=== PATIENT | male | born 1980 | race Caucasian/White ===

== ENCOUNTER 2019-11-23 01:35 | Emergency (ER) | payer OTHER, SELFPAY ==
[2019-11-23 01:40] VITALS: BP 142/80; PULSE 99; RESP 18; TEMP 38.1; O2SAT 99
[2019-11-23 01:46] VITALS: BP 142/80; PULSE 99; RESP 20; O2SAT 99
--- NOTE | 2019-11-23 01:46 | ED.URI ---
HPI - URI/Sore Throat General Chief Complaint: Upper Respiratory Infection Stated Complaint: right sided face pain Time Seen by Provider: 11/23/19 01:50 Source: patient and RN notes reviewed Mode of arrival: ambulatory Limitations: no limitations History of Present Illness HPI Narrative: A 39 y/o male presents to the ED with multiple URI symptoms for the past 2 weeks. He reports that he has had nasal congestion, a white productive cough, rhinorrhea, and a LYLE for the past 2 weeks. He states that he thought he was getting better but that he developed rt facial pain today, so he decided to come to the ED. He notes that he has had some mild SOB which has resolved. He also notes that his son was dx with RSV a couple weeks ago. He denies any fevers, chills, N/V/D, ABD pain, or CP. MD elicited complaint: other (Multiple) Onset (ago): week(s) (2) Description of mucous: other (white) Associated symptoms: headache, rhinorrhea, nasal congestion, cough (a white productive), shortness of breath (resolved) and other (rt facial pain) Related Data Allergies Allergy/AdvReac Type Severity Reaction Status Date / Time No Known Allergies Allergy Verified 11/23/19 01:48 Review of Systems Review of Systems: All systems reviewed & are unremarkable except as noted in HPI and below Constitutional: Constitutional: Denies chills and Denies fever(s) ENT: Reports facial pain (rt), Reports nasal congestion and Reports nasal discharge Cardiovascular: Cardiovascular: Denies chest pain Respiratory: Respiratory: Reports cough (white productive) and Reports dyspnea (resolved) Gastrointestinal: Gastrointestinal: Denies abdominal pain, Denies diarrhea, Denies nausea and Denies vomiting Neurologic: Reports headache(s) PMFSH Past Medical History Medical History Degenerative disc disease Surgical History Surgical History History of endoscopy History of knee surgery Social History Social History (Updated 11/23/19 @ 01:58 by Rajesh Meehan) Smoking status: Smoker, status unknown Tobacco type: e-cigarettes Gender identity (if verbalized by the patient): Male Exam Const: General: cooperative, no acute distress and alert Nutritional Appearance: well nourished Orientation/consciousness: patient oriented x3 Limitations: no limitations HENMT: Ears: TM normal on the right and TM abnormal erythematous on the right Face and sinus: edema and Facial tenderness on exam of face and sinuses on the right maxilla Mouth: Yes lip normal and Yes moist mucous membranes Resp: Effort & Inspection: normal respiratory effort Auscultation: clear to auscultation bilaterally Cardio: Rate: regular rate Rhythm: regular rhythm Skin: General skin exam: normal color Neuro: General: patient oriented x3 Cognition (Neuro): normal cognition Speech: normal speech Extrem: General: normal to inspection, full ROM and no clubbing, cyanosis or edema Psych: Mental Status: mental status grossly normal Affect: normal affect Attitude: cooperative Course Vital Signs Vital signs: Vital Signs Temperature 100.5 F H 11/23/19 01:40 Pulse Rate 99 11/23/19 01:40 Respiratory Rate 18 11/23/19 01:40 Blood Pressure 142/80 H 11/23/19 01:40 Pulse Oximetry 99 11/23/19 01:40 Temperature 100.5 F H 11/23/19 01:40 Pulse Rate 99 11/23/19 01:46 Respiratory Rate 20 11/23/19 01:46 Blood Pressure 142/80 H 11/23/19 01:46 Pulse Oximetry 99 11/23/19 01:46 MDM - URI/Sore Throat MDM Narrative Medical decision making narrative: Patient with 2-week history of viral upper respiratory infection now with fever, isolated facial pain, sinus tenderness, and worsening congestion consistent with secondary development of bacterial sinus infection. Will prescribe antibiotics. Counseled on symptomatic management. Lab Data Labs: Influenza A Screen Negative Referenc
[2019-11-23] MEDS: ACETAMINOPHEN 500 MG TABLET 1000 MG PO (02:33)
[2019-11-23] MEDS: IBUPROFEN 600 MG TABLET PO (02:34)
[2019-11-23] MEDS: AMOXICILLIN/CLAVULANATE K 875-125 MG TAB 1 TABLET PO (02:34)
[2019-11-23 02:36] VITALS: BP 138/82; PULSE 90; RESP 20; O2SAT 100
== END 2019-11-23 02:38 | disposition home or self-care (01) ==
LOC: ANHED 02:27
PROVIDERS: Emergency Provider Emergency Medicine; PCP Emergency Medicine
DX: J01.00 Acute maxillary sinusitis, unspecified (principal); F17.290 Nicotine dependence, other tobacco product, uncomplicated
CPT/HCPCS: 87804; 99283; A9270

== ENCOUNTER 2022-01-18 16:33 | Emergency (ER) | payer OTHER, SELFPAY ==
[2022-01-18 16:48] VITALS: BP 121/81; PULSE 81; RESP 16; TEMP 37.1; O2SAT 98
== END 2022-01-18 17:22 | disposition left against medical advice (07) ==
PROVIDERS: Emergency Provider Nurse Practitioner Family; PCP Physician Assistant
DX: Z53.21 Procedure and treatment not carried out due to patient leaving prior to being seen by health care provider (principal)
CPT/HCPCS: 99199

== ENCOUNTER 2022-08-08 18:16 | Emergency (ER) | payer OTHER, SELFPAY ==
[2022-08-08] VITALS (27 sets, daily range): BP systolic 125–136; BP diastolic 85–100; PULSE 82–102; RESP 12–24; TEMP 37.2; O2SAT 97–100
--- NOTE | ~2022-08-08 | XR_ITS ---
EXAMINATION: XR chest 1V portable Exam Date/Time: 08/08/2022 19:10 NAILER MACHINE HISTORY: ams Comparison: None available. RESULT: Lines, tubes, and devices: None. Lungs and pleura: Clear. Cardiomediastinal silhouette: Normal. Other: No acute osseous or upper abdominal finding. IMPRESSION: No acute cardiopulmonary process. Reviewed, dictated and finalized at location K. ER MACHINE
--- NOTE | ~2022-08-08 | CT_ITS ---
EXAMINATION: CT brain wo con DATE: 08/08/2022 19:23 INDICATION: dizziness . TECHNIQUE: Computed tomography (CT) of the head was performed without intravenous contrast. The mA wa s adjusted according to patient size. Iterative reconstruction technique was employed. The dose-lengt h product was 681.00 mGy-cm. COMPARISON: None FINDINGS: No acute intracranial hemorrhage or extra-axial fluid collection. No hydrocephalus, mass, or herniation. No acute ischemic infarct. Unremarkable dural venous sinus attenuation. No acute osseous abnormality. The aerated spaces are clear. IMPRESSION: No acute intracranial process. Reviewed, dictated and finalized at location K. HOUSE ENGINEER
--- NOTE | ~2022-08-08 | CT_ITS ---
EXAMINATION: CT abdomen pelvis w con DATE: 08/08/2022 20:35 INDICATION: abd pain TECHNIQUE: Computed tomography (CT) of the abdomen and pelvis was performed with 100 mL Omnipaque-350 intravenous contrast. Automated exposure control and iterative reconstruction technique were employe d. The dose-length product was 387.75 mGy-cm. COMPARISON: None. FINDINGS: Lower thorax: Unremarkable Liver: Normal. Biliary/Gallbladder: Gallbladder is normal. No bile duct dilation. Pancreas: No mass or duct dilation. Spleen: Normal. Adrenals:No mass. Kidneys: No suspicious mass, stone, or hydronephrosis. Punctate bilateral renal hyperdensities may re present nonobstructing calculi at the limit of detection. Subcentimeter left lower pole hypodensity, too small to characterize. GI tract: Distal esophageal and gastric wall edema. No small or large bowel dilation. Normal appendix . Mesentery/Peritoneum: No ascites, mass, or free air. Retroperitoneum: No mass. Minimal atherosclerotic abdominal aortic and/or arterial calcifications. Pelvis: Pelvic organs are within normal limits. Soft Tissues: Soft tissues and body wall unremarkable. Bones: No acute osseous finding. IMPRESSION: Esophagitis/gastritis. Otherwise no acute abdominopelvic process detected. Reviewed, dictated and finalized at location K. PROGRAMMER
--- NOTE | 2022-08-08 19:10 | ECG_ITS ---
Measurements Intervals [place] Rate: 86 P: 51 PA: 174 QRS: 52 QRSD: 110 T: 49 QT: 327 QTc: 393 Interpretive Statements SINUS RHYTHM INCOMPLETE RIGHT BUNDLE BRANCH BLOCK ST ELEVATION IN DIFFUSE LEADS- PROBABLY EARLY REPOLARIZATION BASELINE ARTIFACT- I, III, AVL BORDERLINE ECG NO PREVIOUS ECG AVAILABLE FOR COMPARISON Electronically Signed On 08-09-2022 8:27:29 [employer]LEVISION [employer]S [employer] by Roman Florian D.O.
--- NOTE | 2022-08-08 19:12 | ED.GENADULT ---
HPI - General Adult General Chief complaint: Unspecified Stated complaint: lethargic, disoriented Time Seen by Provider: 08/08/22 19:06 Source: RN notes reviewed History of Present Illness HPI narrative: Patient presents emergency department from home for multiple complaints. Patient states she has been feeling very fatigued and tired for the past 6 days. He states that he feels out of it he denies having any definitive episodes of confusion he denies any numbness or tingling in extremities he states he also been having associated abdominal pain diffusely throughout the abdomen there is been ongoing for the past month but is worsened this evening the pain is located around the mid abdomen and radiates around throughout the abdomen he denies any fevers or chills nausea vomiting diarrhea or any other symptoms Related Data Home Medications Medication Instructions Recorded Confirmed terbinafine HCl 250 mg tablet 250 mg PO DAILY 01/18/22 01/18/22 Allergies Allergy/AdvReac Type Severity Reaction Status Date / Time No Known Allergies Allergy Verified 11/23/19 01:48 Review of Systems Review of Systems: Gen.: Denies fevers or chills Eyes: Denies eye pain or visual change ENT: Denies congestion Respiratory: Denies shortness of breath or cough CV: Denies chest pain or palpitations GI: See HPI denies burning, urgency, frequency or hematuria Musculoskeletal: Denies back pain or muscle pain Neuro: Reports fatigue Skin: Denies rash Except as documented, all other systems reviewed and negative [facility] Past Medical History Medical History (Updated 08/08/22 @ 21:36 by Wing Mai DO) Degenerative disc disease Surgical History Surgical History History of endoscopy History of knee surgery Social History Social History (Updated 08/08/22 @ 19:13 by Wing Mai DO) Smoking status: Current every day smoker Tobacco type: e-cigarettes/vaping Gender identity (if verbalized by the patient): Male Exam Narrative: APPEARANCE: No acute distress, nontoxic, resting in bed HEENT: Normocephalic, atraumatic, OMM, no erythema or exudate posterior pharynx EYES: PERRL, EOMI NECK: Supple, nontender, full range of motion without pain, no meningismus RESPIRATORY: No respiratory distress, clear to auscultation bilaterally with no rhonchi wheezing or rales CARDIOVASCULAR: RRR s murmur ABDOMINAL: Soft, nondistended diffusely tender to palpation no rebound or guarding MUSCULOSKELETAL: Moves all extremities. No clubbing, cyanosis or edema. NEURO: A and O ?3, following commands, speech normal, no facial droop,muscle strength 5 out of 5 bilateral upper and lower extremities SKIN:: Warm, dry. Normal Color PSYCHIATRIC: Normal affect/mood Course Course Emergency Course: Discussed with patient his gastritis he states he is on a PPI he has seen a GI doctor before in the past has been a while since he has had a EGD and will refer to GI Discussed with patient results of workup and diagnosis. Discussed need for follow-up with primary care, proper use of medication, and reasons to return to the emergency department. Patient understands and agrees to current treatment plan Vital Signs Vital signs: Vital Signs Temperature 98.9 F 08/08/22 18:24 Pulse Rate 93 08/08/22 18:24 Respiratory Rate 20 08/08/22 18:24 Blood Pressure 136/85 08/08/22 18:24 Pulse Oximetry 99 08/08/22 18:24 Oxygen Delivery Room Air 08/08/22 18:24 Temperature 98.9 F 08/08/22 18:24 Pulse Rate 93 08/08/22 18:24 Respiratory Rate 20 08/08/22 18:24 Blood Pressure 136/85 08/08/22 18:24 Pulse Oximetry 99 08/08/22 18:24 Oxygen Delivery Room Air 08/08/22 18:24 Medical Decision Making MDM Narrative Medical decision making narrative: Patient's abdomen is soft without significant pain or signs of surgical abdomen on serial exams. Lab and x-ray evaluations are reviewed and patient i
[2022-08-08] MEDS: SODIUM CHLORIDE 0.9% IV 1,000 ML 999 ML IV CONT (19:50)
[2022-08-08] MEDS: KETOROLAC 30 MG/ML VIAL (*BKC) IV PUSH (19:51)
[2022-08-08 19:59] LABS: Basophils Absolute Auto 0.1 K/mm3 (0.0-0.1); Basophils Percent Auto 0.4 % (0.2-1.2); Eosinophils Absolute Auto 0.3 K/mm3 (0-0.3); Eosinophils Percent Auto 1.9 % (0-4.4); Hematocrit 47.4 % (42.0-52.0); Hemoglobin 16.5 g/dL (14.0-18.0); Immature Granulocyte Absolute 0.02 K/mm3 (0.00-0.031); Immature Granulocyte Percent A 0.1 % (0-0.5); Lymphocytes Absolute Auto 2.79 K/mm3 (0.9-3.2); Lymphocytes Percent Auto 20.9 % (18.3-44.2); Mean Corpuscular HGB Conc 34.8 g/dl (32-36); Mean Corpuscular Hemoglobin 30.6 pg (26-34); Mean Corpuscular Volume 87.9 fl (80-100); Mean Platelet Volume 9.1 fl (7.4-10.4); Monocytes Absolute Auto 1.6 K/mm3 (0.1-0.6); Monocytes Percent Auto 11.6 % (2.6-8.5); Neutrophils Absolute Auto 8.7 K/mm3 (1.3-6.7); Neutrophils Percent Auto 65.1 % (45.5-73.1); Platelet Count Result 297 k/mm3 (150-375); Red Blood Count 5.39 M/mm3 (4.6-6.20); White Blood Count 13.4 K/mm3 (4.5-10.0)
[2022-08-08 20:00] LABS: Appearance Urine Clear (Clear); Bilirubin Urine Negative (Negative); Blood Urine Trace-intact (Negative); Color Urine Yellow (Yellow); Glucose Urine UA Negative (Negative); Ketones Urine Negative (Negative); Leukocyte Esterase Ur Negative LEU/UL (Negative); Nitrate Urine Negative (Negative); Protein Urine Negative (Negative); Urobilinogen Urine 0.2 mg/dL (<2.0)
[2022-08-08 20:09] LABS: RBC Urine 0-2 /hpf (0-2); WBC Urine 0-3 /hpf
[2022-08-08 20:10] LABS: Prothrombin Time 13.2 Seconds (11.1-14.7)
[2022-08-08 20:11] LABS: Partial Thromboplastin Time 31.1 SECONDS (22.3-36.8)
[2022-08-08 20:14] LABS: Add Urine Microscopic? YES
[2022-08-08 20:20] LABS: Alanine Aminotransferase 19 U/L (6-50); Albumin Level 4.6 g/dL (3.5-5.1); Alkaline Phosphatase 51 U/L (38-126); Anion Gap 10 mmol/L (8-16); Aspartate Amino Transferase 22 U/L (17-59); Bilirubin,Total 0.7 mg/dL (0.2-1.3); Blood Urea Nitrogen 12 mg/dL (9-20); Calcium 9.2 mg/dL (8.4-10.2); Carbon Dioxide 28 mmol/L (22-30); Chloride 101 mmol/L (98-107); Estimated CRCL calculation 95 ml/min; Estimated Glomerular Filt Rate > 60; Glucose 91 mg/dL (65-110); Potassium 3.8 mmol/L (3.4-5.0); Sodium 139 mmol/L (137-145)
[2022-08-08 20:34] LABS: Influenza A QL RT-PCR Negative (Negative); Influenza B QL RT-PCR Negative (Negative); SARS-CoV-2 RNA PCR Negative
[2022-08-08 20:39] LABS: Creatine Kinase 136 U/L (55-170); Lipase 72 U/L (23-300)
[2022-08-08 20:52] LABS: Troponin I < 0.012 ng/mL (0.000-0.034)
== END 2022-08-08 22:15 | disposition home or self-care (01) ==
PROVIDERS: Emergency Provider Emergency Medicine; PCP Physician Assistant
DX: K29.70 Gastritis, unspecified, without bleeding (principal); Z20.822 Contact with and (suspected) exposure to COVID-19; F17.290 Nicotine dependence, other tobacco product, uncomplicated; I45.10 Unspecified right bundle-branch block; R94.31 Abnormal electrocardiogram [ECG] [EKG]
CPT/HCPCS: 36415; 70450; 71045; 74177; 80053; 81001; 82550; 83690; 83735; 84484; 85025; 85610; 85730; 87636; 93005; 96374; 99284; J1885; J7030; Q9967

== ENCOUNTER 2022-11-23 01:12 | Day surgery (SDC) | payer OTHER, SELFPAY ==
[2022-10-15 14:34] VITALS: BMI 25.1
--- NOTE | 2022-11-15 10:36 | PC.NURSE ---
Spoke with pt re rescheduled EGD. Updated pt with new procedure date/arrival/procedure time. Pt verbalized understanding. Pt denied any changes to home medications for health history since previous PAT call completed 10/15/22.
[2022-11-23 08:40] VITALS: BP 133/93; PULSE 87; RESP 18; TEMP 36.8; O2SAT 87; BMI 25.1
[2022-11-23] MEDS: LACTATED RINGERS 1,000 ML 150 ML IV CONT (08:49)
--- NOTE | 2022-11-23 08:59 | P.PNAN_ITS ---
Anes - Initial Pre Proc Eval Procedure: Operation Date: 11/23/22 09:30 Proposed Procedures p Esophagogastroduodenoscopy - Festus Ni MD Date/Time: 11/23/22 08:59 Surgeon: Festus Ni MD Pre Op Diagnosis: gastritis Patient Data Age: 42 Gender: M Height: 1.83 m Weight: 84 kg Last Vital Signs Temp 36.8 C 11/23/22 08:40 Pulse 87 11/23/22 08:40 Resp 18 11/23/22 08:40 BP 133/93 H 11/23/22 08:40 Pulse Ox 87 L 11/23/22 08:40 O2 Del Method Room Air 11/23/22 08:40 Allergies Allergy/AdvReac Type Severity Reaction Status Date / Time No Known Allergies Allergy Verified 11/15/22 10:35 Home Medications Medication Instructions Recorded Confirmed Type alprazolam 0.25 mg tablet 0.25 mg PO DIRECTED 10/15/22 11/15/22 History cyclobenzaprine 10 mg tablet 10 mg PO Q8H PRN Pain 10/15/22 11/15/22 History ibuprofen 600 mg tablet 600 mg PO Q6H PRN Pain 10/15/22 11/15/22 History omeprazole 40 mg capsule,delayed 40 mg PO DAILY 10/15/22 11/15/22 History release tadalafil 5 mg tablet 5 mg PO DAILY 10/15/22 11/15/22 History testosterone 100 mg/mL 100 mg IM WEEKLY 10/15/22 11/15/22 History intramuscular suspension Patient hx anesthesia problems: none Family hx anesthesia problems: none Results Review: All pre-operative results and documents have been reviewed as part of the pre- operative evaluation. [facility] Past Medical History Medical History Degenerative disc disease Surgical History Surgical History History of endoscopy History of knee surgery Social History Social History Smoking status: Current every day smoker Tobacco type: e-cigarettes/vaping Substance use type: does not use Living arrangements: with family Gender identity (if verbalized by the patient): Male Spiritual care concerns: No Anes - Eval Final PreProcedure Day of Procedure 11/23/22 08:59 Patient weight: normal Heart: regular rate and rhythm Lungs: decreased breath sounds Airway: Mallampati scale class II Neurological: alert and oriented Last oral intake: >/= 8 hours ASA classification: III Emergent: no Anesthetic plan: proceed Anesthesia type and monitoring: general GIVS and standard monitoring Results Review: All pre-operative results and documents have been reviewed as part of the pre- operative evaluation. Informed Consent: The patient's anesthetic plan and its attendant risks and benefits were discussed with the patient/family/POA. Questions were solicited and answers provided to the satisfaction of the patient/family/POA.
--- NOTE | 2022-11-23 09:16 | PM.HPGS ---
History of Present Illness History of Present Illness Consent: Risks, benefits, and alternatives have been discussed and questions answered. Patient agrees to proceed with procedure. Chief complaint: gastritis Narrative: Nick Uirarte is a 42 year old male with known history of gastritis, had EGD about 2 years ago using omeprazole, recently more abdominal pain and CT scan showed esophagitis/gastritis, he is also using daily ibuprofen because back pain. Review of Systems Constitutional: Constitutional: Denies headache(s) and Denies weakness Eyes: Eyes: Denies blurry vision ENT: Reports Normal hearing present, Denies headache(s) and Denies neck pain Cardiovascular: Cardiovascular: Denies chest pain and Denies dyspnea Respiratory: Respiratory: Denies dyspnea Gastrointestinal: Gastrointestinal: Reports no additional gastrointestinal complaints Genitourinary: Genitourinary: Denies dysuria Musculoskeletal: Musculoskeletal: Denies neck pain Integumentary/Breasts: Skin/Breast: Denies dry skin Neurologic: Reports Normal hearing present, Denies headache(s) and Denies weakness Psychiatric: Psychiatric: Denies anxiety Endocrine: Endocrine: Denies change in body appearance Hematologic/Lymphatic: Hematologic/Lymphatic: Denies easy bleeding Allergic/Immunologic: Allergic/Immunologic: Denies urticaria PMFSH Past Medical History Medical History (Updated 11/23/22 @ 09:18 by Festus Ni MD) Abnormal CT scan, gastrointestinal tract Degenerative disc disease GERD (gastroesophageal reflux disease) Surgical History Surgical History History of endoscopy History of knee surgery Social History Social History Smoking status: Current every day smoker Tobacco type: e-cigarettes/vaping Substance use type: does not use Living arrangements: with family Gender identity (if verbalized by the patient): Male Spiritual care concerns: No Meds Home Medications and Allergies Home Medications Medication Instructions Recorded Confirmed Type alprazolam 0.25 mg tablet 0.25 mg PO DIRECTED 10/15/22 11/15/22 History cyclobenzaprine 10 mg tablet 10 mg PO Q8H PRN Pain 10/15/22 11/15/22 History ibuprofen 600 mg tablet 600 mg PO Q6H PRN Pain 10/15/22 11/15/22 History omeprazole 40 mg capsule,delayed 40 mg PO DAILY 10/15/22 11/15/22 History release tadalafil 5 mg tablet 5 mg PO DAILY 10/15/22 11/15/22 History testosterone 100 mg/mL 100 mg IM WEEKLY 10/15/22 11/15/22 History intramuscular suspension Allergies Allergy/AdvReac Type Severity Reaction Status Date / Time No Known Allergies Allergy Verified 11/15/22 10:35 Vital Signs Vital Signs - 24 hr 11/23/22 08:40 Temperature 98.2 F Pulse Rate 87 Respiratory Rate 18 Blood Pressure 133/93 H Pulse Oximetry 87 L Oxygen Delivery Room Air Exam Const: General: comfortable and no acute distress HENMT: Face/Nose/Sinus: Normal nares present Eyes: General: appearance normal, both eyes and all related structures Neck: Neck: no JVD Resp: Auscultation: clear to auscultation bilaterally Cardio: Rate: regular rate Rhythm: regular rhythm GI: Inspection: non-distended GI Palp: Yes Soft to palpation Skin: General skin exam: normal color Neuro: General: gait normal Speech: normal speech Extrem: General: normal to inspection Psych: Mental Status: mental status grossly normal Assessment and Plan Assessment and plan (1) GERD (gastroesophageal reflux disease): Code(s): K21.9 - Gastro-esophageal reflux disease without esophagitis Status: Acute (2) Abnormal CT scan, gastrointestinal tract: Code(s): R93.3 - Abnormal findings on diagnostic imaging of other parts of digestive tract Status: Acute Assessment and Plan: egd with bx on ppi
[2022-11-23 09:32] VITALS: BP 114/79; PULSE 94; RESP 18; O2SAT 97
[2022-11-23 09:42] VITALS: BP 110/76; PULSE 86; RESP 16; O2SAT 99
[2022-11-23 09:52] VITALS: BP 116/80; PULSE 78; RESP 18; O2SAT 99
== END 2022-11-23 09:59 | disposition home or self-care (01) ==
PROVIDERS: PCP Physician Assistant; Visit Provider Internal Medicine Gastroenterology
PROC: 0DJ08ZZ Inspection of Upper Intestinal Tract, Via Natural or Artificial Opening Endoscopic (ICD-10-PCS; CPT 43235; principal; 2022-11-23 09:30)
DX: K29.70 Gastritis, unspecified, without bleeding (principal); K21.9 Gastro-esophageal reflux disease without esophagitis; M54.9 Dorsalgia, unspecified; F17.290 Nicotine dependence, other tobacco product, uncomplicated
CPT/HCPCS: 43239; 88305; J2704; J7120